=== PATIENT | female | born 1980 | race Caucasian/White ===

== ENCOUNTER 2020-04-11 15:31 | Outpatient (CLI) | payer OTHER, SELFPAY ==
--- NOTE | 2020-04-11 15:36 | MR_ITS ---
WS: [id number] MRI LEFT KNEE NONCONTRAST TECHNIQUE: Axial PD, coronal PD fat sat, coronal PD, sagittal PD, and sagittal PD fat-sat images obta ined. CLINICAL INFORMATION: TEAR OF LATERAL MENISCUS OF LT KNEE COMPARISON: None. FINDINGS: Normal anatomic alignment. Distal quadriceps and patella tendons are intact. Moderate suprapatellar e ffusion. Normal ACL and PCL. Chronic thinning of the medial and lateral meniscus. Normal medial menis cus. Tear of the lateral meniscus at the meniscal root with T2 signal abnormality. Blunting of the an terior horn. Moderate chondromalacia patella. No subchondral edema. Normal popliteal fossa. Medial and lateral col lateral ligaments are intact. Small amount of edema along the medial collateral ligament consistent w ith grade one injury. MR/MR knee LT wo con* [id number] IMPRESSION: 1. Moderate suprapatellar effusion. Normal ACL and PCL. 2. Tear of the lateral meniscus at the meniscal root with blunting of the ante rior horn. Associated T2 signal abnormality and fluid. 3. Medial meniscus is intact. 4. Grade 1 injury medial collateral ligament which appears intact. 5. Moderate chondromalacia patella.
== END 2020-04-11 15:32 | disposition home or self-care (01) ==
LOC: RADSHAW 15:33
PROVIDERS: PCP Family Medicine; Visit Provider Family Medicine
DX: S83.282A Other tear of lateral meniscus, current injury, left knee, initial encounter (principal); X58.XXXA Exposure to other specified factors, initial encounter; M25.462 Effusion, left knee; M22.42 Chondromalacia patellae, left knee
CPT/HCPCS: 73721

== ENCOUNTER 2023-10-31 13:16 | Outpatient (CLI) | payer OTHER, SELFPAY | END 2023-10-31 13:17 | disposition home or self-care (01) | LOC: SLEEP 13:17 | PROVIDERS: PCP Family Medicine; Visit Provider Family Medicine | DX: G47.10 Hypersomnia, unspecified (principal) | CPT/HCPCS: G0399 ==

== ENCOUNTER → 2024-03-01 15:32 | Outpatient (BNVA) | payer OTHER, SELFPAY | PROVIDERS: PCP Family Medicine; Visit Provider Family Medicine | DX: M19.90 Unspecified osteoarthritis, unspecified site (principal); R63.5 Abnormal weight gain; R53.83 Other fatigue; E03.9 Hypothyroidism, unspecified | CPT/HCPCS: 86160; 86162; 86235; 86255; 86376 ==

== ENCOUNTER → 2024-03-02 07:18 | Outpatient (BNVA) | payer OTHER, SELFPAY | PROVIDERS: PCP Family Medicine; Visit Provider Family Medicine | DX: M19.90 Unspecified osteoarthritis, unspecified site (principal); R63.5 Abnormal weight gain; R53.83 Other fatigue; E03.9 Hypothyroidism, unspecified | CPT/HCPCS: 82306; 82607; 83735; 84100; 85025; 85651; 86003; 86008; 86140; 86618; 86666; 86757 ==